=== PATIENT | male | born 1955 | race Caucasian/White ===

== ENCOUNTER 2020-12-06 15:56 | Inpatient (IN) | payer BC, MEDICARE ==
[~2020-12-06] VITALS: Ht 175.3 cm; Wt 90.3 kg
[2020-12-06 16:21] LABS: BASOPHILS # (AUTO) 0.1 X10'3 (0-0.2); BASOPHILS % (AUTO) 1.1 % (0-1); EOSINOPHILS # (AUTO) 0.1 X10'3 (0-0.9); EOSINOPHILS % (AUTO) 1.9 % (0-6); HEMATOCRIT 44.5 % (42.0-52.0); HEMOGLOBIN 15.2 g/dl (14.0-17.9); LYMPHOCYTES # (AUTO) 0.9 X10'3 (1.1-4.8); LYMPHOCYTES % (AUTO) 15.2 % (21-51); MEAN CORPUSCULAR HEMOGLOBIN 31.6 PG (27.0-31.0); MEAN CORPUSCULAR HGB CONC 34.1 g/dL (33.0-36.5); MEAN CORPUSCULAR VOLUME 92.6 FL (78-98); MONOCYTES # (AUTO) 0.6 X10'3 (0-0.9); MONOCYTES % (AUTO) 10.1 % (2-12); NEUTROPHILS # (AUTO) 4.3 X10'3 (1.8-7.7); NEUTROPHILS % (AUTO) 71.7 % (42-75); PLATELET COUNT 292 X10'3 (140-440); RED CELL DISTRIBUTION WIDTH 13.3 % (11.5-14.5)
[2020-12-06 16:34] LABS: PARTIAL THROMBOPLASTIN TIME 28 SECONDS (22-32)
[2020-12-06 16:38] LABS: ALANINE AMINOTRANSFERASE 45 U/L (12-78); ALKALINE PHOSPHATASE 77 IU/L (46-116); ANION GAP 9 (8-16); ASPARTATE AMINO TRANSFERASE 26 U/L (10-37); BILIRUBIN,TOTAL 0.6 MG/DL (0.1-1.0); BLOOD UREA NITROGEN 22 MG/DL (7-18); BUN/CREATININE RATIO 18.6 (5.4-32.0); CALCIUM 9.9 MG/DL (8.5-10.1); CHLORIDE 105 MMOL/L (99-107); CREATININE 1.18 MG/DL (0.60-1.10); GLUCOSE 114 MG/DL (70-104); POTASSIUM 3.7 MMOL/L (3.5-5.1); SODIUM 145 MMOL/L (135-145); TOTAL CARBON DIOXIDE 31.3 MMOL/L (24-32); TOTAL PROTEIN 7.9 G/DL (6.4-8.2); eGFR 62 ML/MIN
[2020-12-06 16:43] LABS: TROPONIN I < 0.04 NG/ML (0.0-0.05)
--- NOTE | 2020-12-06 17:20 | NUR ---
DR. BAI AT BEDSIDE.
[2020-12-06] MEDS ORDERED: aspirin 325mg tablet PO ONE (17:25)
[2020-12-06] MEDS ORDERED: potassium Cl 20 mEq SR tablet PO PRN ×2 (19:30)
[2020-12-06] MEDS ORDERED: acetaminophen 325mg tablet PO PRN (19:30)
[2020-12-06] MEDS ORDERED: potassium Cl 40MEQ/1/2NS 520ml 520 ML IV PRN ×2 (19:30)
[2020-12-06] MEDS ORDERED: mag hydrox/Alum hydrox/simeth 30ml oral suspension PO PRN (19:30)
[2020-12-06] MEDS ORDERED: magnesium hydroxide 30ml (MOM) UD suspension PO PRN (19:30)
[2020-12-06] MEDS ORDERED: ondansetron/PF 4mg/2ml inj IV PRN (19:30)
[2020-12-06] MEDS: K and/or MAG REPLACEMENT MC SCH (20:00)
[2020-12-06] MEDS ORDERED: ALLO300T8 PO (20:00)
[2020-12-06] MEDS ORDERED: SILD100T70 PO (20:00)
[2020-12-06] MEDS ORDERED: ATOR10TA70 PO (20:00)
[2020-12-06 20:01] LABS: HEMOGLOBIN A1C 5.7 % (4.5-6.2)
[2020-12-06] MEDS: heparin, porcine 5000 units/ml vial SQ SCH (20:41)
[2020-12-06 22:00] VITALS: BP 149/64
[2020-12-07 02:00] VITALS: BP 127/68
--- NOTE | 2020-12-07 06:25 | NUR ---
Patient in room ORTHO 4012. I have received report from Kelly RN and had the opportunity to ask questions and assume patient care.
[2020-12-07 06:27] VITALS: BP 131/63
[2020-12-07 06:50] LABS: BASOPHILS % (AUTO) 0.7 % (0-1); EOSINOPHILS # (AUTO) 0.2 X10'3 (0-0.9); HEMATOCRIT 41.8 % (42.0-52.0); HEMOGLOBIN 14.3 g/dl (14.0-17.9); LYMPHOCYTES # (AUTO) 0.9 X10'3 (1.1-4.8); LYMPHOCYTES % (AUTO) 17.2 % (21-51); MEAN CORPUSCULAR HEMOGLOBIN 31.9 PG (27.0-31.0); MEAN CORPUSCULAR HGB CONC 34.2 g/dL (33.0-36.5); MEAN CORPUSCULAR VOLUME 93.3 FL (78-98); MEAN PLATELET VOLUME 8.1 FL (7.4-10.4); MONOCYTES # (AUTO) 0.5 X10'3 (0-0.9); MONOCYTES % (AUTO) 10.6 % (2-12); NEUTROPHILS # (AUTO) 3.4 X10'3 (1.8-7.7); NEUTROPHILS % (AUTO) 67.5 % (42-75); PLATELET COUNT 273 X10'3 (140-440); RED BLOOD COUNT 4.48 X10'6 (4.70-6.10); RED CELL DISTRIBUTION WIDTH 13.4 % (11.5-14.5)
--- NOTE | 2020-12-07 06:54 | NUR ---
Patient in room ORTHO 4012B. I have received report from MARIETTA MARTINEZ and had the opportunity to ask questions and assume patient care.
[2020-12-07 07:02] LABS: ALANINE AMINOTRANSFERASE 44 U/L (12-78); ALBUMIN 3.5 G/DL (3.4-5.0); ALKALINE PHOSPHATASE 70 IU/L (46-116); ANION GAP 10 (8-16); ASPARTATE AMINO TRANSFERASE 22 U/L (10-37); BILIRUBIN,TOTAL 0.6 MG/DL (0.1-1.0); BLOOD UREA NITROGEN 23 MG/DL (7-18); BUN/CREATININE RATIO 20.5 (5.4-32.0); CALCIUM 9.2 MG/DL (8.5-10.1); CHLORIDE 107 MMOL/L (99-107); CHOLESTEROL 158 MG/DL (0-200); CREATININE 1.12 MG/DL (0.60-1.10); GLUCOSE 108 MG/DL (70-104); HDL CHOLESTEROL 53 MG/DL (35-60); LDL CHOLESTEROL 83 MG/DL (50-100); SODIUM 144 MMOL/L (135-145); TRIGLYCERIDES 134 MG/DL (20-135); eGFR 65 ML/MIN
[2020-12-07] MEDS: heparin, porcine 5000 units/ml vial SQ SCH (07:31)
[2020-12-07] MEDS ORDERED: atorvastatin 20mg tablet PO SCH (08:00)
[2020-12-07] MEDS ORDERED: aspirin 81mg tablet.DR PO SCH (08:00)
[2020-12-07] MEDS ORDERED: clopidogrel 75mg tablet PO SCH (08:00)
[2020-12-07] MEDS: K and/or MAG REPLACEMENT MC SCH (08:00)
[2020-12-07 10:00] VITALS: BP 138/77
[2020-12-07] MEDS ORDERED: LORazepam 2 mg/ml vial IV ONE (10:45)
--- NOTE | 2020-12-07 11:10 | NUR ---
Patient to MRI
--- NOTE | 2020-12-07 11:21 | NUR ---
PAGER ID: [phone] MESSAGE: [id number], Shilo, can you put in an order for MRA of head and neck per MRI request thank you! Kamini ext [phone]
--- NOTE | 2020-12-07 12:12 | NUR ---
PAGER ID: [phone] MESSAGE: [id number] Endsall, patient is back from MRI and results are back as well if you would like to come see him. Thanks, rosario ext [phone]
--- NOTE | 2020-12-07 12:14 | NUR ---
PAGER ID: [phone] MESSAGE: Radiology MD wants to speak with you in regards to Devyn Hitchcock [address]67. Dr. Rodriguez phone number is [phone]. Hannah [phone]
[2020-12-07] MEDS ORDERED: allopurinol 300 MG tablet PO SCH (12:20)
[2020-12-07] MEDS ORDERED: atorvastatin 10mg tablet PO SCH (12:20)
[2020-12-07] MEDS ORDERED: ASPI-1071 PO (14:55)
[2020-12-07] MEDS ORDERED: CLOP75TA34 PO (14:55)
[2020-12-07] MEDS ORDERED: ATOR10TA70 PO (14:55)
--- NOTE | 2020-12-07 15:00 | NUR ---
RN: I have reviewed and agree with all interventions, assessments performed and documented by Kamini Trejo RN.
--- NOTE | 2020-12-07 15:23 | NUR ---
Patient discharged in wheelchair with belongings accompanied by spouse and daughter. Discharge instructions given to patient and his spouse along with follow up information, medication information and diet education as well. 20 gauge IV discontinued from R hand, cannula intact no s/s of phlebitis.
== END 2020-12-07 15:20 | disposition home or self-care (01) | DRG 69 ==
LOC: ER 15:58 → ED HOLD 19:29 → ORTHO 4S 21:42
PROVIDERS: ADMIT Internal Medicine; ATTEND Internal Medicine
DX: G45.9 Transient cerebral ischemic attack, unspecified (principal); N17.0 Acute kidney failure with tubular necrosis; E78.00 Pure hypercholesterolemia, unspecified; M10.9 Gout, unspecified; E78.5 Hyperlipidemia, unspecified; I10 Essential (primary) hypertension; Z79.02 Long term (current) use of antithrombotics/antiplatelets; Z79.82 Long term (current) use of aspirin; Z82.3 Family history of stroke; Z85.3 Personal history of malignant neoplasm of breast; Z85.46 Personal history of malignant neoplasm of prostate
CPT/HCPCS: 36415; 70450; 70544; 70547; 70551; 71045; 80053; 80061; 83036; 84484; 85025; 85610; 85730; 87081; 93005; 93306; 93880; 99285; G0378; J1644; J2060

== ENCOUNTER 2020-12-18 06:42 | Emergency (ER) | payer MEDICARE, BC ==
[~2020-12-18] VITALS: Ht 175.3 cm; Wt 90.9 kg
[~2020-12-18 06:42] MED LIST: ALLO300T8 PO; ASPI-1071 PO; ATOR10TA70 PO; CLOP75TA34 PO
[2020-12-18] MEDS ORDERED: dexamethasone sod phosphate 10mg/ml inj IM STA (07:03)
[2020-12-18] MEDS ORDERED: HYDROcodone/acetaminophen 5mg/325mg tablet PO ONE (07:05)
[2020-12-18] MEDS ORDERED: HYDR-3965 PO (07:06)
[2020-12-18] MEDS ORDERED: COLC1TAB2 PO (07:06)
[2020-12-18 07:26] VITALS: BP 129/82
== END 2020-12-18 07:27 | disposition home or self-care (01) ==
LOC: ER 06:42
DX: M10.9 Gout, unspecified (principal); E78.00 Pure hypercholesterolemia, unspecified; Z86.73 Personal history of transient ischemic attack (TIA), and cerebral infarction without residual deficits; Z79.82 Long term (current) use of aspirin; Z79.899 Other long term (current) drug therapy
CPT/HCPCS: 96372; 99283; J1100